=== PATIENT | male | born 1960 | race American Indian/Alaskan Native ===

== ENCOUNTER 2017-12-09 08:20 | Day surgery (SDC) | payer OTHER ==
[2017-12-09 09:27] LABS: BUN/Creatinine Ratio 17; Blood Urea Nitrogen 22 mg/dL (9-20); Calcium 9.4 mg/dL (8.4-10.2); Hemolysis Index 7
[2017-12-09] MEDS ORDERED: NACL 0.9% 1000 ML 1,000 ML IV SCH ×2 (10:00→10:45)
[2017-12-09] MEDS ORDERED: HURRICAINE ONE 20% TOPICAL SPRAY MM NR ×2 (10:00→10:45)
[2017-12-09] MEDS ORDERED: HURRICAINE ONE 20% TOPICAL SPRAY MM (10:03)
[2017-12-09] MEDS ORDERED: AMIDATE IV ONE (10:57)
[2017-12-09] MEDS ORDERED: XYLOCAINE MPF 2% ONE (11:31)
[2017-12-09] MEDS ORDERED: APRESOLINE ONE (11:32)
[2017-12-09] MEDS ORDERED: VERSED ONE (11:32)
[2017-12-09] MEDS ORDERED: DIPRIVAN 10 MG/ML IV ONE (11:32)
--- NOTE | 2017-12-09 12:33 | Short Stay Summary ---
Short Stay Documentation Date of service: 12/09/17 - History H&P: obtained from office - Allergies and Medications Current Medications: Allergies No Known Allergies Allergy (Verified 12/09/17 08:59) Home Medications Medication Instructions Recorded Confirmed Last Taken Type Aspirin [Aspirin TAB] 325 mg PO DAILY 12/09/17 12/09/17 12/02/17 History 325mg Atorvastatin Calcium 20 mg PO DAILY 12/09/17 12/09/17 12/09/17 03:00 History Fluticasone/Vilanterol [Breo 1 puff INHALATION DAILY 12/09/17 12/09/17 12/08/17 History Ellipta 100-25 Mcg INH] 1 puff Furosemide [Lasix TAB] 40 mg PO DAILY 12/09/17 12/09/17 12/09/17 03:00 History Insulin Glargine [Lantus VIAL] 45 units SQ BID 12/09/17 12/09/17 12/08/17 History 45units Losartan/Hydrochlorothiazide 1 tab PO DAILY 12/09/17 12/09/17 12/09/17 03:00 History [Losartan-Hctz 100-25 mg Tab] 1 tab Metformin HCl [Glucophage] 1,000 mg PO BID 12/09/17 12/09/17 12/08/17 History 1000mg Nebivolol HCl [Bystolic] 20 mg PO DAILY 12/09/17 12/09/17 12/09/17 03:00 History 20mg Omeprazole 40 mg PO DAILY 12/09/17 12/09/17 12/08/17 History 40mg Victoza 2-David 1 dose SQ DAILY 12/09/17 12/09/17 12/08/17 History 1 dose glipiZIDE [Glucotrol] 10 mg PO BID 12/09/17 12/09/17 12/09/17 03:00 History 10mg Active Medications Benzocaine (Hurricaine One 20% Topical [place]) 3 spray MM PREOP NR Stop: 12/09/17 16:00 Last Admin: 12/09/17 11:00 Dose: 3 spray Sodium Chloride (Nacl 0.9% 1000 Ml) 1,000 mls @ 50 mls/hr IV DIRECT MIKE - Physical exam General appearance: no acute distress HEENT: Atraumatic Lungs: Clear to auscultation Breasts: deferred Heart: Regular rate Gastrointestinal: normal Male Genitourinary: deferred Female Genitourinary: deferred Rectal Exam: deferred Extremities: no ischemia Neurological: Normal gait - Brief post op/procedure progress note Date of procedure: 12/09/17 Pre-op diagnosis: Mitral regurgitation Post-op diagnosis: same Procedure: CHAD Anesthesia: MAC Findings: See report Surgeon: ROGERIO VERDUZCO Estimated blood loss: none Pathology: none Condition: stable - Hospital course Hospital course: Uneventful - Disposition Condition at discharge: Good Disposition: DC-01 TO HOME OR SELFCARE Short Stay Discharge Plan Activity: advance as tolerated Weight Bearing Status: Non-Weight Bearing Diet: low fat, low cholesterol, low salt, diabetic Follow up with: ELE GIBSON MD [Primary Care Provider] - 7 Days
[2017-12-09 13:12] VITALS: BP 160/98
== END 2017-12-09 13:30 | disposition home or self-care (01) ==
LOC: CATHLABREC 08:20 → EDSTATUS 09:30 → CATHLABREC 13:30
PROVIDERS: ATTEND Internal Medicine
DX: I34.0 Nonrheumatic mitral (valve) insufficiency (principal); E11.9 Type 2 diabetes mellitus without complications; I10 Essential (primary) hypertension; K21.9 Gastro-esophageal reflux disease without esophagitis; E78.00 Pure hypercholesterolemia, unspecified; Z79.899 Other long term (current) drug therapy; Z79.82 Long term (current) use of aspirin; Z79.84 Long term (current) use of oral hypoglycemic drugs; Z72.89 Other problems related to lifestyle; Z98.890 Other specified postprocedural states; Z82.49 Family history of ischemic heart disease and other diseases of the circulatory system
CPT/HCPCS: 36415; 80048; 91035; 93312; 93320; 93325; J0360; J2250; J2704; J7030

== ENCOUNTER 2017-12-23 07:43 | Day surgery (SDC) | payer OTHER ==
[2017-12-23] MEDS ORDERED: ECOTRIN PO ONE (08:26)
[2017-12-23] MEDS ORDERED: NACL 0.9% 500 ML 500 ML IV SCH (09:00)
[2017-12-23 09:01] LABS: Basophils # (Auto) 0.1 K/mm3 (0.0-0.1); Basophils % (Auto) 0.7 % (0.0-1.8); Eosinophils # (Auto) 0.1 K/mm3 (0.0-0.4); Eosinophils % (Auto) 1.7 % (0.0-4.3); Hematocrit 37.7 % (35.5-45.6); Hemoglobin 12.7 gm/dl (11.8-15.2); Lymphocytes # (Auto) 2.2 K/mm3 (1.2-5.4); Lymphocytes % (Auto) 30.4 % (13.4-35.0); Mean Corpuscular HGB Conc 34 % (32-34); Mean Corpuscular Hemoglobin 30 pg (28-32); Mean Corpuscular Volume 87 fl (84-94); Monocytes # (Auto) 0.7 K/mm3 (0.0-0.8); Monocytes % (Auto) 9.6 % (0.0-7.3); Platelet Count 263 K/mm3 (140-440); Red Blood Count 4.32 M/mm3 (3.65-5.03); Red Cell Distribution Width 13.6 % (13.2-15.2)
[2017-12-23 09:11] LABS: INR 0.93 (0.87-1.13)
[2017-12-23 09:13] LABS: BUN/Creatinine Ratio 24; Blood Urea Nitrogen 31 mg/dL (9-20); Calcium 9.6 mg/dL (8.4-10.2); Hemolysis Index 18
[2017-12-23] MEDS ORDERED: HEPARIN/NS 5000 UNIT/500ML(CATH LAB) 1,000 ML IR ONE (09:39)
[2017-12-23] MEDS ORDERED: HEPARIN 10,000 UNITS/10 ML ONE (09:39)
[2017-12-23] MEDS ORDERED: CALAN ONE (09:40)
[2017-12-23] MEDS ORDERED: XYLOCAINE 2% INFILTRATI ONE (09:40)
[2017-12-23] MEDS ORDERED: NITROGLYCERIN SYRINGE 3 ML ONE (09:40)
[2017-12-23] MEDS ORDERED: SUBLIMAZE ONE (10:12)
[2017-12-23] MEDS ORDERED: VERSED ONE (10:12)
--- NOTE | 2017-12-23 10:59 | Short Stay Summary ---
Short Stay Documentation Date of service: 12/23/17 - History H&P: obtained from office - Allergies and Medications Current Medications: Allergies No Known Allergies Allergy (Verified 12/09/17 08:59) Home Medications Medication Instructions Recorded Confirmed Last Taken Type Aspirin [Aspirin TAB] 325 mg PO DAILY 12/09/17 12/23/17 12/23/17 09:34 History Atorvastatin Calcium 20 mg PO DAILY 12/09/17 12/23/17 12/22/17 History 20mg Fluticasone/Vilanterol [Breo 1 puff INHALATION DAILY 12/09/17 12/23/17 12/21/17 History Ellipta 100-25 Mcg INH] 1 puff Furosemide [Lasix TAB] 40 mg PO DAILY 12/09/17 12/23/17 12/23/17 09:30 History Insulin Glargine [Lantus VIAL] 45 units SQ BID 12/09/17 12/23/17 12/23/17 07:15 History Losartan/Hydrochlorothiazide 1 tab PO DAILY 12/09/17 12/23/17 12/22/17 History [Losartan-Hctz 100-25 mg Tab] 1 tab Metformin HCl [Glucophage] 1,000 mg PO BID 12/09/17 12/23/17 12/22/17 History 1000mg Nebivolol HCl [Bystolic] 20 mg PO DAILY 12/09/17 12/23/17 12/22/17 History 20mg Omeprazole 40 mg PO DAILY 12/09/17 12/23/17 12/22/17 History 40mg Victoza 2-David 1 dose SQ DAILY 12/09/17 12/23/17 12/22/17 History 1 dose glipiZIDE [Glucotrol] 10 mg PO BID 12/09/17 12/23/17 12/22/17 History 10 mg Active Medications Sodium Chloride (Nacl 0.9% 500 Ml) 500 mls @ 50 mls/hr IV DIRECT MIKE Stop: 12/23/17 18:59 Last Admin: 12/23/17 09:20 Dose: 50 mls/hr - Physical exam General appearance: no acute distress HEENT: Atraumatic Lungs: Clear to auscultation Breasts: deferred Heart: Regular rate Gastrointestinal: normal Male Genitourinary: deferred Female Genitourinary: deferred Rectal Exam: deferred Extremities: no ischemia Neurological: Normal gait - Brief post op/procedure progress note Date of procedure: 12/23/17 Pre-op diagnosis: Severe mitral regurgitation Post-op diagnosis: same Procedure: LHC and LV gram Anesthesia: MAC Findings: See report Surgeon: ROGERIO VERDUZCO Estimated blood loss: none Pathology: none Condition: stable - Hospital course Hospital course: Uneventful - Disposition Condition at discharge: Good Disposition: DC-01 TO HOME OR SELFCARE Short Stay Discharge Plan Activity: advance as tolerated Weight Bearing Status: Weight Bear as Tolerated Diet: low fat, low cholesterol, low salt, diabetic Special Instructions: hold Metformin (for 48 hours) Follow up with: ELE GIBSON MD [Primary Care Provider] - 7 Days
[2017-12-23 14:09] VITALS: BP 160/87
--- NOTE | 2017-12-23 16:03 | Cardiac Catherization Report ---
LEFT HEART CATHETERIZATION INDICATION: Severe mitral regurgitation, requiring mitral valve repair. ORDERING PHYSICIAN: Catie Laguan MD PROCEDURES PERFORMED: 1. Selective left and right coronary angiography. 2. Left ventriculography. DESCRIPTION OF PROCEDURE: After obtaining written consent, the patient was draped using sterile technique. A 2% lidocaine was injected into the right wrist. A 6-Indonesian vascular sheath was inserted into the right radial artery, 6-Ind[place]ian JL3.5 catheter was used to selectively engage the left coronary artery. A 6-Ind[place]ian JR4 catheter was used to selectively engage the right coronary artery. A 6-Ind[place]ian pigtail catheter was used to perform a left ventriculogram. No complications occurred during the procedure. Hemostasis was achieved at the end of procedure using mild pressure. Estimated blood loss was minimal. SPECIMEN REMOVED: None. Sedation administered was 2 mg of IV Versed and 25 mcg of IV fentanyl. Physician and patient [id number] sedation start time 10:25 a.m. Physician and patient [id number] sedation stop time 10:40 a.m. Total sedation time is 15 minutes. FINDINGS: HEMODYNAMICS: Aortic pressure 144/74, LV systolic pressure 141 mmHg. No gradient noted across the left ventricular outflow tract. LVEDP measured at 13 mmHg. CARDIAC STRUCTURES: Normal left ventricular size with an ejection fraction estimated at 50%. Evidence of 3+ mitral regurgitation. CORONARY ANATOMY: 1. This is a right dominant circulation. 2. Left main is angiographically normal. 3. LAD is angiographically normal. 4. Left circumflex artery is angiographically normal. 5. Right coronary artery is angiographically normal. IMPRESSION: 1. Angiographically normal coronary circulation. 2. LV ejection fraction estimated at 50%. 3. LVEDP measured at 30 mmHg. 4. 3+ mitral regurgitation. RECOMMENDATIONS: Proceed with mitral valve repair. JOB# [id number] [email or web address]
== END 2017-12-23 14:55 | disposition home or self-care (01) ==
LOC: CATHLABREC 07:43
PROVIDERS: ATTEND Internal Medicine Cardiovascular Disease
DX: I05.0 Rheumatic mitral stenosis (principal); E78.00 Pure hypercholesterolemia, unspecified; I10 Essential (primary) hypertension; K21.9 Gastro-esophageal reflux disease without esophagitis; Z82.49 Family history of ischemic heart disease and other diseases of the circulatory system; Z98.890 Other specified postprocedural states; Z79.82 Long term (current) use of aspirin; Z79.899 Other long term (current) drug therapy; Z79.4 Long term (current) use of insulin; Z79.84 Long term (current) use of oral hypoglycemic drugs; Z83.3 Family history of diabetes mellitus
CPT/HCPCS: 36415; 80048; 85025; 85610; 85730; 93005; 93010; 93458; 99156; C1894; J1644; J2250; J3010; J7040; Q9967